=== PATIENT | male | born 1985 | race Caucasian/White ===

== ENCOUNTER 2017-06-30 01:25 | Emergency (ER) | payer SELFPAY ==
[~2017-06-30 01:25] MED LIST: CLINDAMYCIN 150 MG CAP PO SCH
[2017-06-30] MEDS ORDERED: HYDROCODONE/APAP 5/325 TAB PO ONE (01:59)
[2017-06-30] MEDS ORDERED: CLINDAMYCIN 150 MG CAP PO ONE (01:59)
[2017-06-30] MEDS ORDERED: HYDROCOD/APAP 5/325 PREPACK#6 BTL TAKEHOME ONE ×2 (02:36)
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
[2017-06-30 02:48] VITALS: BP 146/83; PULSE 90; RESP 18; TEMP 97.7; O2SAT 96
== END 2017-06-30 02:46 | disposition home or self-care (01) ==
PROC: 3E0X3BZ Introduction of Anesthetic Agent into Cranial Nerves, Percutaneous Approach (ICD-10-PCS; principal; 2017-06-30)
DX: K04.7 Periapical abscess without sinus (principal); F17.200 Nicotine dependence, unspecified, uncomplicated